=== PATIENT | male | born 1975 | race Native Hawaiian/Other Pacific Islander ===

== ENCOUNTER 2020-05-29 13:40 | Inpatient (IN) | payer SELFPAY ==
[2020-05-29] MEDS ORDERED: SODIUM CHLORIDE 0.9% 500 ML 500 ML IV ONE (14:23)
--- NOTE | 2020-05-29 14:25 | Event Note ---
ED Screening Note Date of service: 05/29/20 Time: 14:24 ED Screening Note: 44-year-old male was brought to the ER today by family member with complaint of abdominal distention. Onset 15 days ago. He reports abdominal discomfort when he tries to eat. He reports decreased appetite and constipation. He went to the urgent care today and he was sent here to rule out ascites. He denies any history of alcohol abuse or liver disease. He denies any past significant medical history This initial assessment/diagnostic orders/clinical plan/treatment(s) is/are subject to change based on patients health status, clinical progression and re- assessment by fellow clinical providers in the ED. Further treatment and workup at subsequent clinical providers discretion. Patient/guardian urged not to elope from the ED as their condition may be serious if not clinically assessed and managed. Initial orders include: Abdominal pain order set including CT abdomen pelvis with IV contrast
[2020-05-29 15:02] LABS: Bilirubin,Urine NEG (Negative); Blood,Urine SM (Negative); Color,Urine Amber (Yellow); Mucus,Urine 3+ /HPF
[2020-05-29 15:15] LABS: Basophils % (Auto) 1.2 % (0.0-1.8); Eosinophils # (Auto) 0.4 K/mm3 (0.0-0.4); Eosinophils % (Auto) 12.3 % (0.0-4.3); Hematocrit 37.9 % (35.5-45.6); Hemoglobin 12.9 gm/dl (11.8-15.2); Lymphocytes % (Auto) 30.4 % (13.4-35.0); Mean Corpuscular HGB Conc 34 % (32-34); Mean Corpuscular Volume 105 fl (84-94); Monocytes # (Auto) 0.4 K/mm3 (0.0-0.8); Monocytes % (Auto) 11.9 % (0.0-7.3); Platelet Count 56 K/mm3 (140-440); Red Blood Count 3.63 M/mm3 (3.65-5.03)
[2020-05-29 15:30] LABS: Alanine Aminotransferase 66 units/L (7-56); Albumin 2.3 g/dL (3.9-5); Bilirubin,Direct 0.9 mg/dL (0-0.2); Blood Urea Nitrogen 13 mg/dL (9-20); Calcium 7.7 mg/dL (8.4-10.2); Hemolysis Index 4
[2020-05-29 15:50] LABS: BUN/Creatinine Ratio 26
--- NOTE | 2020-05-29 17:11 | Cat Scan Report ---
CT abdomen pelvis w con INDICATION: Abdominal Pain /abd distention. TECHNIQUE: All CT scans at this location are performed using CT dose reduction for ALARA by means of automated e xposure control. COMPARISON: None available. FINDINGS: Images through the lung bases show no acute disease. There is extensive ascites throughout the abdome n and pelvis. Liver is small and probably cirrhotic. Spleen is borderline enlarged, but there are spl enic and gastrohepatic varices. Pancreas, kidneys and adrenals are negative. Abdominal aorta is junior l in size. No adenopathy. Pelvis Urinary bladder appears negative. Right and transverse colon appear edematous, although this could be due at least in part to the extensive ascites. No skeletal lesions. IMPRESSION: 1. 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 2. Colon appears edematous, but this could be at least in part due to the described ascites. Signer Name: Jair Webster MD Signed: 05/29/2020 5:07 PM Workstation Name: [id number]
--- NOTE | 2020-05-29 17:26 | Emergency Department Report ---
ED Abdominal Pain HPI - General Chief Complaint: Abdominal Pain Stated Complaint: ABD PAIN Time Seen by Provider: 05/29/20 14:20 Source: professor of medicine Mode of arrival: Ambulatory Limitations: No Limitations - History of Present Illness Initial Comments: 44-year male with no significant past medical or surgical history presents to the hospital complaints of gradually worsening abdominal distention with constipation for last 15 days. Patient having very small amount of hard stool output intermittently. He was seen at a urgent care clinic and sent to the ER for evaluation of possible new onset ascites. Patient denies pain, fever, or alcohol abuse. Severity scale (0 -10): 0 - Related Data Home Medications Medication Instructions Recorded Confirmed Last Taken No Known Home Medications [No 05/29/20 05/29/20 Unknown Reported Home Medications] Allergies Allergy/AdvReac Type Severity Reaction Status Date / Time No Known Allergies Allergy Verified 05/29/20 16:23 ED Review of Systems ROS: Stated complaint: ABD PAIN Other details as noted in HPI Comment: All other systems reviewed and negative ED Past Medical Hx - Past Medical History Previous Medical History?: No - Surgical History Past Surgical History?: No - Social History Smoking Status: Never Smoker Substance Use Type: None - Medications Home Medications: Home Medications Medication Instructions Recorded Confirmed Last Taken Type No Known Home Medications [No 05/29/20 05/29/20 Unknown History Reported Home Medications] ED Physical Exam - General Limitations: No Limitations - Other Other exam information: General: No acute distress Head: Atraumatic Eyes: Mildly icteric sclera ENT: Moist mucous membranes Neck: Normal appearance, no midline tenderness Chest: Clear to auscultation bilaterally CV: Regular rate and rhythm Abdomen: Soft, normal bowel sounds, nontender, abdominal distention. No rebound or guarding Back: Normal inspection Extremity: Normal inspection, full range of motion Neuro: Alert O x 3, no facial asymmetry, speech clear, no gross motor sensory deficit Psych: Appropriate behavior Skin: No rash ED Course Vital Signs 05/29/20 05/29/20 05/29/20 14:37 15:56 15:57 Temperature 99 F Pulse Rate 87 83 Respiratory 18 18 18 Rate Blood Pressure 159/81 142/80 [Right] O2 Sat by Pulse 98 100 Oximetry 05/29/20 05/29/20 16:54 17:32 Temperature Pulse Rate 91 H 82 Respiratory 18 18 Rate Blood Pressure 148/77 129/71 [Right] O2 Sat by Pulse 99 100 Oximetry - Consultations Consultation #1: 05/29/20 17:[address] Leonard on-call GI doctor who recommends admission for therapeutic/diagnostic paracentesis and further work-up ED Medical Decision Making - Lab Data Result diagrams: 05/29/20 14:25 05/29/20 14:25 Lab Results 05/29/20 05/29/20 05/29/20 Range/Units 14:25 14:25 14:38 WBC 3.3 L (4.5-11.0) K/mm3 RBC 3.63 L (3.65-5.03) M/mm3 Hgb 12.9 (11.8-15.2) gm/dl Hct 37.9 (35.5-45.6) % MCV 105 H (84-94) fl MCH 36 H (28-32) pg MCHC 34 (32-34) % RDW 18.0 H (13.2-15.2) % Plt Count 56 L (140-440) K/mm3 Lymph % (Auto) 30.4 (13.4-35.0) % [place] % (Auto) 11.9 H (0.0-7.3) % Eos % (Auto) 12.3 H (0.0-4.3) % Baso % (Auto) 1.2 (0.0-1.8) % Lymph # (Auto) 1.0 L (1.2-5.4) K/mm3 [place] # (Auto) 0.4 (0.0-0.8) K/mm3 Eos # (Auto) 0.4 (0.0-0.4) K/mm3 Baso # (Auto) 0.0 (0.0-0.1) K/mm3 Seg Neutrophils % 44.2 (40.0-70.0) % Seg Neutrophils # 1.5 L (1.8-7.7) K/mm3 Sodium 136 L (137-145) mmol/L Potassium 4.1 (3.6-5.0) mmol/L Chloride 108.4 H (98-107) mmol/L Carbon Dioxide 21 L (22-30) mmol/L Anion Gap 11 mmol/L BUN 13 (9-20) mg/dL Creatinine 0.5 L (0.8-1.3) mg/dL Estimated GFR > 60 ml/min BUN/Creatinine Ratio 26 % Glucose 78 (75-100) mg/dL Calcium 7.7 L (8.4-10.2) mg/dL Total Bilirubin 2.10 H (0.1-1.2) mg/dL Direct Bilirubin 0.9 H (0-0.2) mg/dL Indirect Bilirubin 1.2 mg/dL AST 112 H (5-40) units/L ALT 66 H (7-56) units/L Alkaline Phosphatase 320 H (35-129) units/L Total Protein 7.1 (6.3-8.2) g/dL Albumin 2.3 L (3.9-5) g/dL Albumin/Globulin Ratio 0.5 % Lipase 28 (13-60) units/L Urine Color Mar (Yellow) Urine Turbidity Clear (Clear) Urine pH 6.0 (5.0-7.0) Ur Specific [place] 1.025 (1.003-1.030) Urine Protein 100 mg/dl (Negative) mg/dL Urine Glucose (UA) Neg (Negative) mg/dL Urine Ketones Tr (Negative) mg/dL Urine Blood Sm (Negative) Urine Nitrite Neg (Negative) Urine Bilirubin Neg (Negative) Urine Urobilinogen 2.0 (<2.0) mg/dL Ur Leukocyte Esterase Neg (Negative) Urine WBC (Auto) 3.0 (0.0-6.0) /HPF Urine RBC (Auto) 7.0 (0.0-6.0) /HPF Urine Mucus 3+ /HPF - Radiology Data Radiology results: report reviewed CT abdomen pelvis w con INDICATION: Abdominal Pain /abd distention. TECHNIQUE: All CT scans at this location are performed using CT dose reduction for ALARA by means of automated exposure control. COMPARISON: None available. FINDINGS: Images through the lung bases show no acute disease. There is extensive ascites throughout the abdomen and pelvis. Liver is small and probably cirrhotic. Spleen is borderline enlarged, but there are splenic and gastrohepatic varices. Pancreas, kidneys and adrenals are negative. Abdominal aorta is normal in size. No adenopathy. Pelvis Urinary bladder appears negative. Right and transverse colon appear edematous, although this could be due at least in part to the extensive ascites. No skeletal lesions. IMPRESSION: 1. 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 2. Colon appears edematous, but this could be at least in part due to the described ascites. - Medical Decision Making 44-year-old male with no significant past medical history presents to the hospital with new diagnosis of ascites with hepatic failure/cirrhosis with associated varices and thrombocytopenia. Coags pending at disposition. Case discussed with GI physician who recommended admission for therapeutic/diagnostic paracentesis. Case discussed with hospitalist for admission. Critical Care Time: No Critical care attestation.: If time is entered above; I have spent that time in minutes in the direct care of this critically ill patient, excluding procedure time. ED Disposition Clinical Impression: Ascites, Hepatic cirrhosis, Gastric varices, Splenic varices, Thrombocytopenia Disposition: OP ADMIT IP TO THIS HOSP Is pt being admited?: Yes Condition: Stable Time of Disposition: 17:41 (Dr Adames/hospitalist)
--- NOTE | 2020-05-29 17:43 | History and Physical Report ---
History of Present Illness Chief complaint: The doctor sent me here History of present illness: 44 YO Male with CLD complicated by Cirrhosis and Ascites presents to ED for evaluation. Patient reports "my stomach is all bloated". Patient states that he has experienced abdominal distention over the past 15 days with persistently worsening symptoms over the same timeframe. Patient also reports lack of bowel movement over the past 2 weeks. Patient was seen and evaluated in urgent care and was found to have constipation complicated by ascites. Patient was instructed to seek further care at [facility]. Patient transported to [facility] via private vehicle for further care and evaluation. Patient seen and evaluated in the emergency department. All lab and imaging studies reviewed. Patient found to have chronic liver disease complicated by cirrhosis as well as ascites, and constipation. GI team consulted in ED. Patient pending therapeutic paracentesis as per GI team. Patient placed in observation status and admitted to medical floor. Patient initiated on bowel regimen. Patient denies fever, chills, chest pain, palpitations, productive cough, skin rash, recent ill contacts, ingestion of food/water from new or different sources, or known exposure to COVID-19. No prior admission for review. No medication listed at time of admission reconciliation. Past History Past Medical History: other (See HPI) Past Surgical History: No surgical history, Other (Reviewed) Social history: single. denies: smoking, alcohol abuse, prescription drug abuse Family history: no significant family history, other (reviewed) Medications and Allergies Allergies Allergy/AdvReac Type Severity Reaction Status Date / Time No Known Allergies Allergy Verified 05/29/20 16:23 Home Medications Medication Instructions Recorded Confirmed Last Taken Type No Known Home Medications [No 05/29/20 05/29/20 Unknown History Reported Home Medications] Review of Systems Constitutional: no weight loss, no weight gain, no fever, no chills Ears, nose, mouth and throat: no ear pain, no ear discharge, no tinnitis, no decreased hearing, no nose pain, no nasal congestion, no nasal discharge Cardiovascular: no chest pain, no palpitations, no rapid/irregular heart beat, no edema, no syncope Respiratory: no cough, no hemoptysis, no shortness of breath Gastrointestinal: abdominal pain, other (distention) Genitourinary Male: no hematuria, no flank pain, no discharge, no urinary frequency, no urinary hesitancy (The drain water last) Rectal: no pain, no incontinence, no bleeding Musculoskeletal: no neck stiffness, no neck pain, no shooting arm pain, no leg numbness/tingling Integumentary: no rash, no pruritis, no redness, no sores, no wounds, no jaundice Neurological: no head injury, no paralysis, no numbness, no seizures, no syncope, no tremors Psychiatric: no anxiety, no sleep disturbances, no hypersomnia, no change in appetite, no suicidal ideation Endocrine: no cold intolerance, no polyphagia, no excessive thirst, no nocturia, no excessive sweating Hematologic/Lymphatic: no easy bruising, no easy bleeding, no lymphadenopathy, no lymphedema Allergic/Immunologic: no urticaria, no allergic rhinitis, no anaphylaxis, no angioedema Exam - Constitutional Vitals: Temp Pulse Resp BP Pulse Ox 99 F 82 18 129/71 100 05/29/20 14:37 05/29/20 17:32 05/29/20 17:32 05/29/20 17:32 05/29/20 17:32 General appearance: Present: mild distress - EENT Eyes: Present: PERRL ENT: hearing intact, clear oral mucosa - Neck Neck: Present: supple, normal ROM - Respiratory Respiratory effort: normal Respiratory: bilateral: CTA - Cardiovascular Heart Sounds: Present: S1 & S2. Absent: rub, click - Extremities Extremities: pulses symmetrical, No edema Peripheral Pulses: within normal limits - Abdominal General gastrointestinal: Present: soft, non-tender, distended, normal bowel sounds Male genitourinary: Present: normal - Integumentary Integumentary: Present: clear, warm, dry - Musculoskeletal Musculoskeletal: gait normal, strength equal bilaterally - Psychiatric Psychiatric: appropriate mood/affect, intact judgment & insight - Neurologic Neurologic: CNII-XII intact, moves all extremities Results - Labs CBC & Chem 7: 05/29/20 14:25 05/29/20 14:25 Labs: Abnormal lab results 05/29/20 05/29/20 Range/Units 14:25 14:25 WBC 3.3 L (4.5-11.0) K/mm3 RBC 3.63 L (3.65-5.03) M/mm3 MCV 105 H (84-94) fl MCH 36 H (28-32) pg RDW 18.0 H (13.2-15.2) % Plt Count 56 L (140-440) K/mm3 [place] % (Auto) 11.9 H (0.0-7.3) % Eos % (Auto) 12.3 H (0.0-4.3) % Lymph # (Auto) 1.0 L (1.2-5.4) K/mm3 Seg Neutrophils # 1.5 L (1.8-7.7) K/mm3 Sodium 136 L (137-145) mmol/L Chloride 108.4 H (98-107) mmol/L Carbon Dioxide 21 L (22-30) mmol/L Creatinine 0.5 L (0.8-1.3) mg/dL Calcium 7.7 L (8.4-10.2) mg/dL Total Bilirubin 2.10 H (0.1-1.2) mg/dL Direct Bilirubin 0.9 H (0-0.2) mg/dL AST 112 H (5-40) units/L ALT 66 H (7-56) units/L Alkaline Phosphatase 320 H (35-129) units/L Albumin 2.3 L (3.9-5) g/dL Assessment and Plan - Patient Problems (1) Chronic liver disease and cirrhosis Current Visit: Yes Status: Acute Plan to address problem: GI team consulted, coagulation profile, supportive care. (2) Ascites Current Visit: Yes Status: Acute Qualifiers: Ascites type: other type Qualified Code(s): R18.8 - Other ascites Plan to address problem: Supportive care. GI team consulted for therapeutic paracentesis. (3) DVT prophylaxis Current Visit: Yes Status: Acute Plan to address problem: SCD to BLE while in bed, Pt is ambulatory
[2020-05-29 17:45] LABS: INR 1.26 (0.87-1.13)
[2020-05-29 17:46] LABS: Partial Thromboplastin Time 31.1 Sec. (24.2-36.6)
[2020-05-29] MEDS ORDERED: ALBUTEROL 2.5 MG/3 ML NEBU IH PRN (17:53)
[2020-05-29] MEDS ORDERED: ONDANSETRON 4 MG/2 ML INJ IV PRN (17:53)
[2020-05-29] MEDS ORDERED: ACETAMINOPHEN 325 MG TAB PO PRN (17:53)
--- NOTE | 2020-05-30 09:25 | Progress Note ---
Assessment and Plan Assessment and plan: (1) Chronic liver disease and cirrhosis Current Visit: Yes Status: Acute Plan to address problem: GI team consulted, coagulation profile, supportive care. (2) Ascites Current Visit: Yes Status: Acute Qualifiers: Ascites type: other type Qualified Code(s): R18.8 - Other ascites Plan to address problem: Supportive care. GI team consulted for therapeutic paracentesis. (3) DVT prophylaxis Current Visit: Yes Status: Acute Plan to address problem: SCD to BLE while in bed, Pt is ambulatory 05/30/2020 -Patient has significant ascites and paracentesis was done and revealed 1.5 L of straw-colored fluid. GI was consulted and ordered lab work-up. -We will continue to follow. History Interval history: Patient was seen and evaluated this morning Patient has abdominal distention, no fever Hospitalist Physical - Physical exam Narrative exam: Not in cardiopulmonary distress. The patient appeared well nourished and normally developed. Vital signs as documented. Head exam is unremarkable. No scleral icterus . Neck is without jugular venous distension, thyromegaly, or carotid bruits. Lungs are clear to auscultation. Cardiac exam reveals regular rate and Rhythm. Abdominal exam reveals significant ascites, with distention. Extremities are nonedematous and both femoral and pedal pulses are normal. TRAVEL CLERK: Alert and oriented 3. No focal weakness. - Constitutional Vitals: Temp Pulse Resp BP Pulse Ox 98.4 F 88 18 122/59 100 05/30/20 08:07 05/30/20 08:07 05/30/20 08:07 05/30/20 08:07 05/30/20 08:07 General appearance: Present: mild distress Results - Labs CBC & Chem 7: 05/29/20 14:25 05/30/20 13:33 Labs: Laboratory Last Values WBC 3.3 K/mm3 (4.5-11.0) L 05/29/20 14:25 RBC 3.63 M/mm3 (3.65-5.03) L 05/29/20 14:25 Hgb 12.9 gm/dl (11.8-15.2) 05/29/20 14:25 Hct 37.9 % (35.5-45.6) 05/29/20 14:25 MCV 105 fl (84-94) H 05/29/20 14:25 MCH 36 pg (28-32) H 05/29/20 14:25 MCHC 34 % (32-34) 05/29/20 14:25 RDW 18.0 % (13.2-15.2) H 05/29/20 14:25 Plt Count 56 K/mm3 (140-440) L 05/29/20 14:25 Lymph % (Auto) 30.4 % (13.4-35.0) 05/29/20 14:25 [place] % (Auto) 11.9 % (0.0-7.3) H 05/29/20 14:25 Eos % (Auto) 12.3 % (0.0-4.3) H 05/29/20 14:25 Baso % (Auto) 1.2 % (0.0-1.8) 05/29/20 14:25 Lymph # (Auto) 1.0 K/mm3 (1.2-5.4) L 05/29/20 14:25 [place] # (Auto) 0.4 K/mm3 (0.0-0.8) 05/29/20 14:25 Eos # (Auto) 0.4 K/mm3 (0.0-0.4) 05/29/20 14:25 Baso # (Auto) 0.0 K/mm3 (0.0-0.1) 05/29/20 14:25 Seg Neutrophils % 44.2 % (40.0-70.0) 05/29/20 14:25 Seg Neutrophils # 1.5 K/mm3 (1.8-7.7) L 05/29/20 14:25 PT 15.6 Sec. (12.2-14.9) H 05/29/20 17:23 INR 1.26 (0.87-1.13) H 05/29/20 17:23 APTT 31.1 Sec. (24.2-36.6) 05/29/20 17:23 Sodium 136 mmol/L (137-145) L 05/29/20 14:25 Potassium 4.1 mmol/L (3.6-5.0) 05/29/20 14:25 Chloride 108.4 mmol/L (98-107) H 05/29/20 14:25 Carbon Dioxide 21 mmol/L (22-30) L 05/29/20 14:25 Anion Gap 11 mmol/L 05/29/20 14:25 BUN 13 mg/dL (9-20) 05/29/20 14:25 Creatinine 0.5 mg/dL (0.8-1.3) L 05/29/20 14:25 Estimated GFR > 60 ml/min 05/29/20 14:25 BUN/Creatinine Ratio 26 % 05/29/20 14:25 Glucose 78 mg/dL (75-100) 05/29/20 14:25 Calcium 7.7 mg/dL (8.4-10.2) L 05/29/20 14:25 Total Bilirubin 2.10 mg/dL (0.1-1.2) H 05/29/20 14:25 Direct Bilirubin 0.9 mg/dL (0-0.2) H 05/29/20 14:25 Indirect Bilirubin 1.2 mg/dL 05/29/20 14:25 AST 112 units/L (5-40) H 05/29/20 14:25 ALT 66 units/L (7-56) H 05/29/20 14:25 Alkaline Phosphatase 320 units/L (35-129) H 05/29/20 14:25 Total Protein 7.1 g/dL (6.3-8.2) 05/29/20 14:25 Albumin 2.3 g/dL (3.9-5) L 05/29/20 14:25 Albumin/Globulin Ratio 0.5 % 05/29/20 14:25 Lipase 28 units/L (13-60) 05/29/20 14:25 Urine Color Mar (Yellow) 05/29/20 14:38 Urine Turbidity Clear (Clear) 05/29/20 14:38 Urine pH 6.0 (5.0-7.0) 05/29/20 14:38 Ur Specific [place] 1.025 (1.003-1.030) 05/29/20 14:38 Urine Protein 100 mg/dl mg/dL (Negative) 05/29/20 14:38 Urine Glucose (UA) Neg mg/dL (Negative) 05/29/20 14:38 Urine Ketones Tr mg/dL (Negative) 05/29/20 14:38 Urine Blood Sm (Negative) 05/29/20 14:38 Urine Nitrite Neg (Negative) 05/29/20 14:38 Urine Bilirubin Neg (Negative) 05/29/20 14:38 Urine Urobilinogen 2.0 mg/dL (<2.0) 05/29/20 14:38 Ur Leukocyte Esterase Neg (Negative) 05/29/20 14:38 Urine WBC (Auto) 3.0 /HPF (0.0-6.0) 05/29/20 14:38 Urine RBC (Auto) 7.0 /HPF (0.0-6.0) 05/29/20 14:38 Urine Mucus 3+ /HPF 05/29/20 14:38 James/IV: Voiding Method Toilet Active Medications - Current Medications Current Medications: Generic Name Dose Route Start Last Admin Trade Name Freq PRN Reason Stop Dose Admin Acetaminophen 650 mg 05/29/20 17:53 Acetaminophen 325 Mg Tab PO Q4H PRN Pain MILD(1-3)/Fever >100.5/MERCER Albuterol 2.5 mg 05/29/20 17:53 Albuterol 2.5 Mg/3 Ml Nebu IH Q4HRT PRN Shortness Of Breath Ondansetron HCl 4 mg 05/29/20 17:53 Ondansetron 4 Mg/2 Ml Inj IV Q8H PRN Nausea And Vomiting Sodium Chloride 10 ml 05/29/20 22:00 Sodium Chloride 0.9% 10 Ml Flush Syringe IV BID SAMARIA Sodium Chloride 10 ml 05/29/20 17:53 Sodium Chloride 0.9% 10 Ml Flush Syringe IV PRN PRN LINE FLUSH
--- NOTE | 2020-05-30 11:39 | Gastroenterology Consultation ---
History of Present Illness - Reason for Consult Consult date: 05/30/20 ascites Requesting physician: ANGEL DESAI - History of Present Illness The patient is a 44 male who presents with abdominal distention. Professional interpretor service was used to obtain history. Patient has had progressive abd distention for the past 2 weeks. He may have had similar symptoms in April, but worsened last couple weeks. Had poor po intake due to abd distention. CT scan on admission showed signs of cirrhosis, portal htn and ascites. No known h/o liver disease, denies alcohol abuse (alcohol once every few months), IVDU, denies abd pain, gi bleeding, n/v or other gi complaints at this time. Past History Past Medical History: other (See HPI) Past Surgical History: No surgical history, Other (Reviewed) Social history: single. denies: smoking, alcohol abuse, prescription drug abuse Family history: no significant family history, other (reviewed) Medications and Allergies Allergies Allergy/AdvReac Type Severity Reaction Status Date / Time No Known Allergies Allergy Verified 05/29/20 16:23 Home Medications Medication Instructions Recorded Confirmed Last Taken Type No Known Home Medications [No 05/29/20 05/29/20 Unknown History Reported Home Medications] Active Meds: Active Medications Acetaminophen (Acetaminophen 325 Mg Tab) 650 mg PO Q4H PRN PRN Reason: Pain MILD(1-3)/Fever >100.5/MERCER Albuterol (Albuterol 2.5 Mg/3 Ml Nebu) 2.5 mg IH Q4HRT PRN PRN Reason: Shortness Of Breath Ondansetron HCl (Ondansetron 4 Mg/2 Ml Inj) 4 mg IV Q8H PRN PRN Reason: Nausea And Vomiting Sodium Chloride (Sodium Chloride 0.9% 10 Ml Flush Syringe) 10 ml IV BID SAMARIA Last Admin: 05/30/20 09:42 Dose: Not Given Documented by: Sodium Chloride (Sodium Chloride 0.9% 10 Ml Flush Syringe) 10 ml IV PRN PRN PRN Reason: LINE FLUSH Reviewed/updated patient's home and current medications Review of Systems - Review of Systems All systems: negative (per HPI) Exam - Constitutional Vital Signs: Temp Pulse Resp BP Pulse Ox 98.4 F 84 19 122/59 100 05/30/20 08:07 05/30/20 10:00 05/30/20 10:00 05/30/20 08:07 05/30/20 10:00 General appearance: no acute distress - EENT Eyes: PERRL, EOM intact - Respiratory Respiratory effort: normal Respiratory: bilateral: CTA - Gastrointestinal General gastrointestinal: Present: non-tender, distended, other (+ ascites) - Neurologic Neurological: alert and oriented x3 - Psychiatric Psychiatric: appropriate mood/affect - Labs CBC & Chem 7: 05/29/20 14:25 05/29/20 14:25 Lab Results: Laboratory Results - last 24 hr 05/29/20 05/29/20 05/29/20 14:25 14:25 14:38 WBC 3.3 L RBC 3.63 L Hgb 12.9 Hct 37.9 MCV 105 H MCH 36 H MCHC 34 RDW 18.0 H Plt Count 56 L Lymph % (Auto) 30.4 [place] % (Auto) 11.9 H Eos % (Auto) 12.3 H Baso % (Auto) 1.2 Lymph # (Auto) 1.0 L [place] # (Auto) 0.4 Eos # (Auto) 0.4 Baso # (Auto) 0.0 Seg Neutrophils % 44.2 Seg Neutrophils # 1.5 L PT INR APTT Sodium 136 L Potassium 4.1 Chloride 108.4 H Carbon Dioxide 21 L Anion Gap 11 BUN 13 Creatinine 0.5 L Estimated GFR > 60 BUN/Creatinine Ratio 26 Glucose 78 Calcium 7.7 L Total Bilirubin 2.10 H Direct Bilirubin 0.9 H Indirect Bilirubin 1.2 AST 112 H ALT 66 H Alkaline Phosphatase 320 H Total Protein 7.1 Albumin 2.3 L Albumin/Globulin Ratio 0.5 Lipase 28 Urine Color Mar Urine Turbidity Clear Urine pH 6.0 Ur Specific [place] 1.025 Urine Protein 100 mg/dl Urine Glucose (UA) Neg Urine Ketones Tr Urine Blood Sm Urine Nitrite Neg Urine Bilirubin Neg Urine Urobilinogen 2.0 Ur Leukocyte Esterase Neg Urine WBC (Auto) 3.0 Urine RBC (Auto) 7.0 Urine Mucus 3+ 05/29/20 17:23 WBC RBC Hgb Hct MCV MCH MCHC RDW Plt Count Lymph % (Auto) [place] % (Auto) Eos % (Auto) Baso % (Auto) Lymph # (Auto) [place] # (Auto) Eos # (Auto) Baso # (Auto) Seg Neutrophils % Seg Neutrophils # PT 15.6 H INR 1.26 H APTT 31.1 Sodium Potassium Chloride Carbon Dioxide Anion Gap BUN Creatinine Estimated GFR BUN/Creatinine Ratio Glucose Calcium Total Bilirubin Direct Bilirubin Indirect Bilirubin AST ALT Alkaline Phosphatase Total Protein Albumin Albumin/Globulin Ratio Lipase Urine Color Urine Turbidity Urine pH Ur Specific [place] Urine Protein Urine Glucose (UA) Urine Ketones Urine Blood Urine Nitrite Urine Bilirubin Urine Urobilinogen Ur Leukocyte Esterase Urine WBC (Auto) Urine RBC (Auto) Urine Mucus - Imaging CT Scan: report reviewed Assessment and Plan 1. Cirrhosis/ascites - reports recent onset, no known h/o liver disease, suspected new diagnosis of cirrhosis. etiology unclear, denies h/o alcohol abuse/IVDU; will check viral hep serologies, iron studies and immune markers. diagnostic/therapeutic paracentesis pending. low sodium diet. will follow
[2020-05-30] MEDS ORDERED: ALBUMIN HUMAN 25% (25 GM/100 ML) INJ IV PRN (12:39)
--- NOTE | 2020-05-30 12:39 | Procedure Note ---
Date of procedure: 05/30/20 Pre-op diagnosis: Ascites Post-op diagnosis: same Procedure: US guided paracentesis Findings: See report in EMR Anesthesia: local Surgeon: SHRUTI LEAHY Estimated blood loss: minimal Pathology: list Specimen disposition: to lab Condition: stable Disposition: floor
--- NOTE | 2020-05-30 12:42 | Ultrasound Report ---
Ultrasound-guided paracentesis HISTORY: ascites with abdominal distension. PROCEDURE: The risks (including but not limited to bleeding, infection, and bowel injury) and benefi ts were explained to the patient and informed consent was obtained. A time out procedure was perform ed. Ultrasound was used to evaluate the abdomen and locate the largest ascites fluid pocket. Once the sk in was marked, the procedure site was prepped and draped in the usual sterile fashion and lidocaine w as used for local anesthesia. A skin renata was made and a 6-Maldivian paracentesis catheter was placed. The patient was monitored closely throughout the procedure, and a total of 1800 mL of thin yellow fl uid was aspirated. Samples were sent to the lab for further evaluation per the primary clinicians or ders. The patient tolerated the procedure well with no complications. IMPRESSION: Successful paracentesis as above with a total of 1800 mL of thin yellow fluid aspirated. Signer Name: Pacheco Medrano MD Signed: 05/30/2020 12:37 PM Workstation Name: [id number]
[2020-05-30 14:17] LABS: INR 1.46 (0.87-1.13)
[2020-05-30 14:29] LABS: Alanine Aminotransferase 64 units/L (7-56); Albumin 2.3 g/dL (3.9-5); Blood Urea Nitrogen 19 mg/dL (9-20); Calcium 7.9 mg/dL (8.4-10.2); Hemolysis Index 2
[2020-05-30 14:30] LABS: Iron 83 ug/dL (49-181); Total Iron Binding Capacity 148 mcg/dL (250-450)
[2020-05-30 14:47] LABS: BUN/Creatinine Ratio 27
[2020-05-30 22:52] LABS: Monocytes Body Fluid 9 %
[2020-05-30 22:58] LABS: Total Cells Counted 26 /mm3
[2020-05-31 02:13] LABS: INR 1.59 (0.87-1.13)
[2020-05-31 02:32] LABS: Albumin 1.8 g/dL (3.9-5); Bilirubin,Direct 0.6 mg/dL (0-0.2)
[2020-05-31 02:40] LABS: Basophils % (Auto) 0.8 % (0.0-1.8); Eosinophils # (Auto) 0.6 K/mm3 (0.0-0.4); Eosinophils % (Auto) 12.1 % (0.0-4.3); Hematocrit 31.9 % (35.5-45.6); Lymphocytes # (Auto) 1.3 K/mm3 (1.2-5.4); Lymphocytes % (Auto) 27.8 % (13.4-35.0); Mean Corpuscular HGB Conc 34 % (32-34); Mean Corpuscular Volume 104 fl (84-94); Monocytes # (Auto) 0.7 K/mm3 (0.0-0.8); Red Blood Count 3.07 M/mm3 (3.65-5.03); Red Cell Distribution Width 17.9 % (13.2-15.2)
[2020-05-31 02:52] LABS: BUN/Creatinine Ratio 23; Blood Urea Nitrogen 18 mg/dL (9-20); Calcium 7.3 mg/dL (8.4-10.2); Hemolysis Index 1
[2020-05-31 03:24] LABS: Platelet Count 53 K/mm3 (140-440)
[2020-05-31 04:01] VITALS: BP 117/63
--- NOTE | 2020-05-31 10:03 | Discharge Summary ---
Providers - Providers Date of Admission: 05/30/20 15:34 Date of discharge: 05/31/20 Attending physician: ANGEL DESAI MD 05/29/20 17:36 Consult to Physician [CONS] Urgent Comment: Consulting Provider: SONY BRANDT Physician Instructions: Reason For Exam: new onset ascites Primary care physician: SLAB PULLER Hospitalization Reason for admission: Cirrhosis, ascites, hep C infection Condition: Stable Procedures: Paracentesis Hospital course: has experienced abdominal distention over the past 15 days with persistently worsening symptoms over the same timeframe. Patient also reports lack of bowel movement over the past 2 weeks. Patient was seen and evaluated in urgent care and was found to have constipation complicated by ascites. Patient was instructed to [facility] Patient transported to [facility] via private vehicle for further care and evaluation. Patient seen and evaluated in the emergency department. All lab and imaging studies reviewed. Patient found to have chronic liver disease complicated by cirrhosis as well as ascites, and constipation. GI team consulted in ED. Patient pending therapeutic paracentesis as per GI team. Patient placed in observation status and admitted to medical floor. Patient initiated on bowel regimen. Patient denies fever, chills, chest pain, palpitations, productive cough, skin rash, recent ill contacts, ingestion of food/water from new or different sources, or known exposure to COVID-19. No prior admission for review. No medication listed at time of admission reconciliation. Hospital course Patient was admitted to the floor and radiology was consulted and did drainage of ascites was done, 1800 mL of thin yellow fluid was drained. Was sent for lab and show no infection or other abnormalities identified on the fluid. Serology was done and patient is positive for hepatitis C. GI was consulted and recommend to have follow-up as an outpatient in 2 weeks. Patient does not have any shortness of breath, fever or abdominal pain. Patient discharged home with p.o. Lasix and spironolactone. Will follow with GI in 2 weeks. I have explained the management plan in detail using process specialist #[id number]. Patient verbalized and understands the plan of care and is in his condition. Patient's questions and concerns were addressed at the bedside. Disposition: - TO HOME OR SELFCARE Time spent for discharge: 32-minutes - Discharge Diagnoses (1) Hepatitis C infection Status: Acute (2) Ascites Status: Acute Qualifiers: Ascites type: other type Qualified Code(s): R18.8 - Other ascites (3) Chronic liver disease and cirrhosis Status: Acute (4) Gastric varices Status: Acute Core Measure Documentation - Palliative Care Palliative Care/ Comfort Measures: Not Applicable - Core Measures Any of the following diagnoses?: none Exam - Physical Exam Narrative exam: Not in cardiopulmonary distress. The patient appeared well nourished and normally developed. Vital signs as documented. Head exam is unremarkable. No scleral icterus . Neck is without jugular venous distension, thyromegaly, or carotid bruits. Lungs are clear to auscultation. Cardiac exam reveals regular rate and Rhythm. Abdominal exam reveals significant for ascites. Abdomen is not tense, nontender. Extremities are nonedematous and both femoral and pedal pulses are normal. INFECTIOUS DISEASE PHYSICIAN: Alert and oriented 3. No focal weakness. - Constitutional Vitals: Temp Pulse Resp BP Pulse Ox 98.4 F 74 16 117/63 97 05/31/20 04:01 05/31/20 04:01 05/31/20 04:01 05/31/20 04:01 05/31/20 09:01 Plan Activity: no restrictions Weight Bearing Status: Full Weight Bearing Diet: low salt Follow up with: PRIMARY MD TRACIE [Primary Care Provider] - 7 Days HUSEYIN YANG MD [Staff Physician] - 14 Days (For treatment of fever that C infection, cirrhosis, ascites) Prescriptions: Spironolactone [Aldactone] 50 mg PO QDAY #30 tablet Furosemide [Lasix] 40 mg PO DAILY #30 tablet
== END 2020-05-31 14:35 | disposition home or self-care (01) | DRG 433 ==
LOC: ED 13:40 → 4A 17:53 → OBSVTOIN 05-30 15:34
PROVIDERS: ADMIT Internal Medicine; ATTEND Internal Medicine
PROC: 0W9G3ZZ Drainage of Peritoneal Cavity, Percutaneous Approach (ICD-10-PCS; principal; 2020-05-30)
DX: K74.60 Unspecified cirrhosis of liver (principal); R18.8 Other ascites; I86.4 Gastric varices; B19.20 Unspecified viral hepatitis C without hepatic coma; D69.6 Thrombocytopenia, unspecified; I86.8 Varicose veins of other specified sites
CPT/HCPCS: 36415; 49083; 74177; 80048; 80053; 80076; 81001; 82040; 82150; 83520; 83550; 83690; 84160; 85025; 85610; 85730; 86235; 86706; 86709; 86803; 88112; 88305; 89051; 94760; 96365; 96375; G0378; J7040; Q9967